=== PATIENT | male | born 1980 | race Caucasian/White ===

== ENCOUNTER 2019-05-28 12:31 | Emergency (ER) | payer OTHER ==
[2019-05-28 12:45] VITALS: BP 125/52; PULSE 63; TEMP 98.1; BMI 29.9
[2019-05-28] MEDS ORDERED: KETOROLAC TROMETHAMINE 60 MG/2 ML VIAL IM ONE (12:50)
[2019-05-28] MEDS ORDERED: KETOROLAC TROMETHAMINE 60 MG/2 ML VIAL ONE (12:52)
--- NOTE | 2019-05-28 13:04 | PDOC ---
History of Present Illness - General Chief Complaint: Back Pain Stated Complaint: LOWER BACK PAIN YPD Time Seen by Provider: 05/28/19 12:44 History Source: Patient - History of Present Illness Occurred: reports: this morning Severity: reports: moderate Pain Location: reports: back Method of Injury: Yes: fall Past History - Past Medical History Allergies/Adverse Reactions: Allergies Allergy/AdvReac Type Severity Reaction Status Date / Time No Known Allergies Allergy Verified 05/28/19 12:41 Home Medications: Ambulatory Orders Cyclobenzaprine HCl [Flexeril -] 10 mg PO HS #9 tablet 05/28/19 Ibuprofen [Motrin -] 800 mg PO Q6H #30 tablet 05/28/19 COPD: No - Psycho Social/Smoking Cessation Hx Smoking History: Never smoked Information on smoking cessation initiated: No Hx Alcohol Use: No Drug/Substance Use Hx: No Review of Systems - Review of Systems Musculoskeletal: Yes: Back Pain. No: Neck Pain Neurological: No: Numbness, Tingling, Weakness *Physical Exam - Vital Signs Last Vital Signs Temp Pulse Resp BP Pulse Ox 98.1 F 63 19 125/52 L 100 05/28/19 12:39 05/28/19 12:39 05/28/19 12:39 05/28/19 12:39 05/28/19 12:39 - Physical Exam General Appearance: Yes: Appropriately Dressed, Mild Distress HEENT: positive: Normal Voice Neck: positive: Supple Respiratory/Chest: negative: Respiratory Distress Gastrointestinal/Abdominal: positive: Soft. negative: Tender Musculoskeletal: positive: Vertebral Tenderness (to L lower back, pain to site w / bending). negative: CVA Tenderness Integumentary: positive: Dry, Warm Neurologic: positive: Fully Oriented, Alert, Normal Mood/Affect, Motor Strength /5 ED Treatment Course - RADIOLOGY Radiology Studies Ordered: Category Date Time Status SPINE-LUMBAR SACRAL [RAD] Stat Radiology 05/28/19 12:50 Taken - Medications Given in the ED: ED Medications Discontinued Medications Generic Name Dose Route Start Last Admin Trade Name Freq PRN Reason Stop Dose Admin Ketorolac Tromethamine 60 mg 05/28/19 12:50 05/28/19 12:55 Toradol Injection - IM 05/28/19 12:51 60 mg ONCE ONE Administration Medical Decision Making - Medical Decision Making 05/28/19 12:59 38-year-old male, no significant history, recent recruit to [email or web address] and 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 Has not taken anything for pain see exam M/l lower back strain XR neg Dose of toradol given here Dc w/ OTC med prn pain PMD f/u as needed Discharge - Discharge Information Problems reviewed: Yes Clinical Impression/Diagnosis: Low back strain Qualifiers: Encounter type: initial encounter Qualified Code(s): S39.012A - Strain of muscle, fascia and tendon of lower back, initial encounter Condition: Good Disposition: HOME - Additional Discharge Information Prescriptions: Cyclobenzaprine HCl [Flexeril -] 10 mg PO HS #9 tablet Ibuprofen [Motrin -] 800 mg PO Q6H #30 tablet - Follow up/Referral Referrals: Frandy Abad MD [Primary Care Provider] - - Patient Discharge Instructions Patient Printed Discharge Instructions: DI for Back Strain or Sprain Additional Instructions: You most likely sustained a back sprain which can take a few days to a week or so to improve Take meds as directed If pain persist after 2 weeks, follow-up with your doctor - Post Discharge Activity Work/Back to School Note: Back to Work
== END 2019-05-28 13:09 | disposition home or self-care (01) ==
LOC: JERFT 12:31
PROC: 3E0233Z Introduction of Anti-inflammatory into Muscle, Percutaneous Approach (ICD-10-PCS; principal; 2019-05-28)
DX: S39.012A Strain of muscle, fascia and tendon of lower back, initial encounter (principal); X58.XXXA Exposure to other specified factors, initial encounter; Y93.89 Activity, other specified; Y92.89 Other specified places as the place of occurrence of the external cause; Y99.0 Civilian activity done for income or pay; Y35.891A Legal intervention involving other specified means, law enforcement official injured, initial encounter
CPT/HCPCS: 72100-TC-FY; 99282-25

== ENCOUNTER 2020-07-26 16:10 | Emergency (ER) | payer BC, OTHER ==
[2020-07-26 16:25] VITALS: BP 133/83; PULSE 89; TEMP 97.8; BMI 32.3
== END 2020-07-26 17:15 | disposition home or self-care (01) ==
LOC: FER 16:10
DX: S39.012A Strain of muscle, fascia and tendon of lower back, initial encounter (principal)
CPT/HCPCS: 99282-25